=== PATIENT | female | born 1950 | race Caucasian/White ===

== ENCOUNTER 2023-03-04 11:27 | Emergency (ER) | payer MEDICARE, SELFPAY ==
[2023-03-04 11:38] VITALS: BP 129/49; PULSE 76; PULSE 86; RESP 18; TEMP 36.6; O2SAT 100; O2SAT 94; BMI 23.5
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
[2023-03-04 12:15] LABS: Appearance Urine Clear; Color Urine Dark Yellow; Glucose Urine UA Negative (Negative); Leukocyte Esterase Urine Trace (Negative); Nitrite Urine Negative (Negative); PH 7.5 (5.0-9.0); UMIC TRIGGER UACC YES; Urine Blood Negative (Negative); Urine Ketones 15 mg/dL (Negative); Urine Protein Negative (Neg-Trace)
[2023-03-04 12:17] LABS: Bacteria Urine None Seen (None Seen); Hyaline Casts Urine 0-2 /LPF (0-2); RBC Urine 0-2 /HPF (0-2); Squamous Epithelial Cell Urine 0-2 /HPF (0-2); WBC Urine 0-5 /HPF (0-5)
[2023-03-04 12:20] LABS: Amphetamine Screen Urine Not Detected (Not Detect); Barbiturates, Urine Not Detected (Not Detect); Benzodiazepines Screen Urine Not Detected (Not Detect); Cannabinoid Screen Urine Not Detected (Not Detect); Cocaine Screen Urine Not Detected (Not Detect); Fentanyl, urine Not Detected (Not Detect); Opiate Screen Urine Not Detected (Not Detect); Phencyclidine Screen Urine Not Detected (Not Detect)
--- NOTE | 2023-03-04 12:25 | PC.NURSE ---
pt partner, Ramírez Hale, also pts power of glazier supervisor and HCP - lives with pt.
--- OUTSIDE RECORDS SUMMARY | 2023-03-04 12:27 | XMS_ITS | Continuity of Care Document ---
Author Name Unknown Organization [facility] Address [address] [place] [id number]- Care Team Providers Care Electrical Systems Designer Name Role Phone Rashard Machuca DO Primary Care Physician [phone] Encounter [facility] [id number] Date(s): 12/17/22 - 12/24/22 [facility] [address] [place] [id number]- Attending Physician: Calixto Gonzalez MD Referring Physician: Rashard Machuca DO Allergies, Adverse Reactions, Alerts No Known Allergies Immunizations Given and Recorded Vaccine Date Status Refusal Reason pneumococcal 13-valent vaccine 08/25/15 Given Fluarix (oldterm) 01/29/13 Recorded Zostavax (oldterm) 09/03/12 Recorded tetanus/diphtheria/pertussis, acel(Tdap) 08/18/08 Recorded Medications Calcium Carbonate-Magnesium Carbonate 2 tablet, By Mouth, 3 times a day, 0 Refills, Maintenance, 05/04/15 11:03:14 Start Date: 05/04/15 Status: Ordered Culturelle Capsule 0 Refills, Maintenance, 08/19/14 12:16:21 Start Date: 08/19/14 Status: Ordered Destinee-C 1000 mg oral tablet 1 tablet = 1,000 mg, By Mouth, Daily, 0 Refills, Maintenance, 05/04/15 11:03:39 Start Date: 05/04/15 Status: Ordered Latanoprost 0.005% Ophth 1 drops, Eyes, Both, Daily at bedtime, 0 Refills, Maintenance, 08/19/14 12:16:07 Start Date: 08/19/14 Status: Ordered turmeric 0 Refills, Maintenance, 05/04/15 11:04:08 Start Date: 05/04/15 Status: Ordered Vitamin C Tablet 0 Refills, Maintenance, 08/19/14 12:18:22 Start Date: 08/19/14 Status: Ordered Vitamin D3 By Mouth, 0 Refills, Maintenance, 08/19/14 12:16:52 Start Date: 08/19/14 Status: Ordered Problem List Condition Confirmation Course Effective Dates Status Health St atus Informant Fatigue, started around 2006 Confirmed Active FH: Crohn's disease Confirmed Active HLA-B27 positive Confirmed Active Irritable bowel syndrome Confirmed Active Breast cancer, lumpectomy 2005, no chemo or radiation Confirmed Active Osteopenia Confirmed Active Vital Signs Most recent to oldest [Reference Range]: 1 Height 167 cm (12/17/22 1:01 PM) Weight 57.2 kg (12/17/22 1:01 PM) Social History Social History Type Response Smoking Status Never smoker entered on: 08/19/14 Sex Patient Care team information Care Team Personnel Name: Rashard Machuca DO Position: Reference Physician Member Role: PCP Address: Address: [address] [place] [address] [place] [address]- Care Team Related Persons Name: CALEB PADGETT
--- OUTSIDE RECORDS SUMMARY | 2023-03-04 12:27 | XMS_ITS | Continuity of Care Document ---
Author Name Unknown Organization [facility] Address [address] [place] [id number]- Care Team Providers Care Administration Assistant Name Role Phone Rashard Machuca DO Primary Care Physician Encounter [facility] Date(s): 12/17/22 - 01/16/[address] [address]- Attending Physician: Elin Garcia Admitting Physician: Elin Garcia Referring Physician: AdmtrElin Allergies, Adverse Reactions, Alerts No Known Allergies [...] 08/19/14 Status: Ordered turmeric 0 Refills, Maintenance, 01/06/16 11:04:08 Start Date: 05/04/15 Status: Ordered Vitamin [...] or radiation Confirmed Active Osteopenia Confirmed Active Social History Social History Type Response Smoking Status Never smoker entered on: 08/19/14 Sex Patient Care team information Care Team Personnel Name: Rashard Machuca DO Position: Reference Physician Member Role: PCP Address: Address: [address] [place] [id number]- Care Team Related Persons Name: CALEB PADGETT Name: CHESTER AMANDA Address: home [address] [place] [address]
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
[2023-03-04 14:13] VITALS: BP 141/51; PULSE 77; RESP 14; TEMP 36.9; O2SAT 99
[2023-03-04 14:17] LABS: MANUAL DIFF FLAG NO
[2023-03-04 14:18] LABS: Basophils Absolute Auto 0.1 X10*3/uL (0.0-0.2); Basophils Percent Auto 0.8 % (0-2); Eosinophils Absolute Auto 0.1 X10*3/uL (0.0-0.4); Eosinophils Percent Auto 1.1 % (0-4); Hematocrit 38.9 % (37.0-47.0); Hemoglobin 12.9 g/dl (12.0-16.0); Imm Gran Abs Auto 0.03 X10*3/uL (0.00-0.03); Imm Gran Pct Auto 0.4 % (0.0-0.4); Lymphocytes Absolute Auto 2.9 X10*3/uL (1.2-4.9); Lymphocytes Percent Auto 35.8 % (20-40); Mean Corpuscular HGB Conc 33.2 g/dl (31.0-35.0); Mean Corpuscular Hemoglobin 28.7 pg (27.0-33.0); Mean Corpuscular Volume 86.4 fL (80.0-98.0); Mean Platelet Volume 10.6 fL (9.4-12.3); Monocytes Absolute Auto 0.8 X10*3/uL (0.1-1.2); Monocytes Percent Auto 9.8 % (2-11); Neutrophils Absolute Auto 4.2 x10*3/uL (2.0-8.3); Neutrophils Percent Auto 52.1 % (45-73); Platelet Count 352 X10*3/uL (160-400); Red Cell Distribution Width 12.7 % (11.0-16.0)
[2023-03-04 14:34] LABS: Alanine Aminotransferase 12 U/L (0-31); Albumin Level 4.2 g/dL (3.5-5.0); Alkaline Phosphatase 52 U/L (39-117); Anion Gap 13 (12-20); Aspartate Amino Transferase 24 U/L (5-31); Bilirubin Direct 0.2 mg/dL (0.0-0.5); Bilirubin Total 0.4 mg/dL (0.0-1.0); Blood Urea Nitrogen 13 mg/dL (9-16); Carbon Dioxide 24 mmol/L (22-29); Chloride 106 mmol/L (96-108); Creatinine Clr Calc Pharmacy 70.6; Estimated Glomerular Filt Rate > 60; Glucose Random 98 mg/dL (60-115); Potassium 3.2 mmol/L (3.3-5.1); Sodium 140 mmol/L (135-145); Total Protein 7.3 g/dL (6.5-8.0)
--- NOTE | 2023-03-04 15:00 | MHC.CARE ---
Pt does not meet inpatient level of care currently, partner seeking LTC placement in SNF. CARE team requested OT complete MoCa and [place] Cognitive assessment on patient and OT reports they will do assessments tomorrow. CARE team also reached out to Ronit Nevarez CLEARANCE REP for med consult and ED provider requested medication consult formally to medicate place while boarding in ED.
--- NOTE | 2023-03-04 16:09 | MHC.CM.ED ---
Received case management consult from Blanca ROLON. Patient was brought to the ER under section 12. Patient was cleared by Care Team. Psych consult for med recommendation is pending. OT eval for MOCA and ACL are ordered and will be done tomorrow. Attempted to speak to patient's sig other/HCP, Ramírez via telephone at [phone]. Ramírez did not answer. Voicemail has not been set up. Received message from case management office that there is an active investigation with [facility]. Bhupendra is requesting a return telephone call. Attempted to speak to Bhupendra via telephone at [phone], ext [phone]. Left voicemail requesting return telephone call and that patient will be in the ER at least overnight. Continue to monitor for d/c needs.
--- NOTE | 2023-03-04 17:08 | ECG_ITS ---
Test Reason : AMS Blood Pressure : / mmHG Vent. Rate : 078 BPM Atrial Rate : 078 BPM P-R Int : 178 ms QRS Dur : 098 ms QT Int : 388 ms P-R-T Axes : 063 069 041 degrees QTc Int : 442 ms Normal sinus rhythm Normal ECG No previous ECGs available Referred By: Blanca Guillen Electronically Signed By:FERNANDA MCCARTNEY MD
[2023-03-04] MEDS: QUEtiapine Fumarate 25 MG TABLET PO (18:46)
--- NOTE | 2023-03-04 18:52 | PC.NURSE ---
pt resting bed folding blankets, she is increasingly agitated - medicated per MAR for seroquel 25mg. pt requesting to go home. requires frequent redirection and reassurance. pt cooperative at this time
[2023-03-04 20:09] VITALS: BP 124/74; PULSE 68; RESP 16; TEMP 36.6; O2SAT 94
--- NOTE | 2023-03-04 20:14 | PC.NURSE ---
This newspaper writer assumed care at 1900, Pt AO to self, pt is attempting to get out of bed, pt is very obsessed about her wooden bamboo cane. Pt states I need to go home. 1:[address] for safety.
--- NOTE | 2023-03-04 20:30 | PC.NURSE ---
This RN contacting the Care Team regarding clarification on disposition. This RN reading a Care Team note clearing patient from any psych component, noted a PT/CM eval in and a suggestion for LTC to manage dementia. I spoke to Mickie who also stated that she had been cleared by the Care Team and is now CM. Sitter removed from bedside, no longer needed. Plan for pt to be moved to OF.
--- NOTE | 2023-03-04 21:40 | PC.NURSE ---
Ramírez has been called to confirmed patients medications. has been updated and reassured of plan of care. Rn to Rn report given to overflow nurse.
--- NOTE | 2023-03-04 21:47 | PC.NURSE ---
This RN spoke to ОЛЬГА Robbins, asking for pts medications to be continued. Med Rec completed by ED RP.
[2023-03-04 21:50] VITALS: BP 137/61; PULSE 76; RESP 18; TEMP 36.6; O2SAT 96
--- NOTE | 2023-03-04 21:56 | MHC.EDTECH ---
Patient just came over from the main ed to overflow ,pt got settle in bed ,clean gown on ,RN took vitals ,fresh water given ,bed alarm on bed and Call anglin within Patient reach ,Tele sitter Camera in room ,Patient is calm ,warm blanket given .
--- NOTE | 2023-03-04 22:03 | PC.NURSE ---
Pt arrived to ED overflow from main ED at 21:42. VSS. Alert to self and generally to hospital. Hx dementia. Pt confused, requires frequent redirecting and reminder to remain in bed for safety. Camera placed for safety and VMT room notified 22:05. High falls risks measures in place. Pharmacy called to request scheduled meds not currently stocked in pyxis. Will continue to monitor.
[2023-03-04] MEDS: Latanoprost 0.005 % Ophth Sol 2.5 ML DROPS 1 DROP EYE-BOTH (22:19)
[2023-03-05 05:02] VITALS: BP 124/64; PULSE 94; RESP 14; TEMP 36.3; O2SAT 98
[2023-03-05] MEDS: QUEtiapine Fumarate 25 MG TABLET PO ×2 (05:03→17:17)
--- NOTE | 2023-03-05 06:11 | PC.NURSE ---
Pt remains confused, still requiring redirection, occassionally gets OOB without calling as evidenced by bed alarm. Constant observer covered from 23:00 to 03:00. In-room camera has remained in place since installed on assuming care. Pt given prn seroquel with +effect, pt appearing less agitated after administration. Will continue to monitor for remainder of administrative underwriter's shift.
--- NOTE | 2023-03-05 08:00 | MHC.EDTECH ---
Patient was unstable on her feet getting her out of bed this morning. She was brought to the bathroom and was clean for the day.
--- NOTE | 2023-03-05 08:23 | MHC.CM.ED ---
Addendum entered by Bushra De Jesus 03/05/23 12:18: CM MET WITH PTS S/O/HCP HE REPORTS HE WAS FEELING OVERWHELMED AND TIRED TRYING TO CARE FOR PT ALONE HE REPORTS HE WOULD PREFER PT BE ABLE TO RETURN HOME HOWEVER HE WOULD NEED ASSISTANCE HE IS AGREEABLE TO A REFERRAL TO EC HE IS AWARE THEY WOULD NOT SET UP SERVICES IMMEDIATELY IF SHE QUALIFIES REFERRAL SENT. CM CURRENTLY WAITING FOR EC TO SPEAK WITH S/O AND DETERMINE HOW SOON THEY COULD DO THE IN HOME ASSESSMENT S/O UNDERSTANDS SHE HAS TO BE HOME FOR THAT TO HAPPEN, HOWEVER HOPES THAT IT WILL BE SHORTLY AFTER SHE RETURNS Original Note: PSYCH EVAL/OT ASSESSMENTS PENDING LTC IN A LOCKED UNIT APPEARS TO BE THE DC GOAL REFERRAL BUILT, WILL BE SENT ONCE PSYCH DOCUMENTS ARE AVAILABLE
[2023-03-05 09:42] VITALS: BP 135/63; PULSE 84; RESP 15; TEMP 36.1; O2SAT 98
--- NOTE | 2023-03-05 10:11 | PHA.MEDREC ---
Pharmacy Consult ? Medication Reconciliation Pharmacy has completed the medication reconciliation. Reviewed med rec done by nursing
[2023-03-05] MEDS: DULoxetine HCl 30 MG CAPSULE.DR PO (10:16)
--- NOTE | 2023-03-05 12:44 | PM.PSYCN ---
History of Present Illness Date of Service: 03/05/2023 Chief Complaint: sec 12 by hpd, agitation, confused/disoriented Reason for Consult: combative behaviors in dementia Requesting physician: Blanca Guillen Discussed with referring provider: Yes Sources of Information: patient interviewed, chart reviewed and crisis/core team assessment reviewed HPI Narrative: Mrs. Weeks is a 72 year-old woman with hx of dementia who was brought via EMS due to increase combative behaviors towards significant other in setting of dementia. In the ED, pt had medical work up including cbc, cmp grossly unremarkable. She also had UA which had trace of leukocites, no nitrites. She was recently treated for UTI outpatient and just finished course of antipsychotic. Pt has been referred to case management for placement. Pt seen in ED. Pt is very pleasant on approach. She does know this is the hospital but does not know the month or day or date and she has some degree of insight that I forget things easily, it may not be accurate. She reports she is doing well. She hopes to go back home soon. She reports everyone here has been so nice, food is great. Pt earlier in the morning was somewhat agitated asking to leave. Per nursing, pt received seroquel 25mg po once with good effect. Diagnostics Vital Signs (24Hr): Vital Signs - 24 hr 03/04/23 14:13 03/04/23 20:09 03/04/23 21:50 Temperature 98.4 F 97.9 F 97.8 F Pulse Rate 77 68 76 Respiratory Rate 14 16 18 Blood Pressure 141/51 H 124/74 137/61 Pulse Oximetry 99 94 96 Oxygen Delivery Method Room Air Room Air Room Air 03/05/23 05:02 03/05/23 09:42 Temperature 97.3 F 97 F Pulse Rate 94 84 Respiratory Rate 14 15 Blood Pressure 124/64 135/63 Pulse Oximetry 98 98 Oxygen Delivery Method Room Air Room Air BMI result Body Mass Index 23.5 Labs 03/04/23 14:10 03/04/23 14:10 Labs: Laboratory Results - last 48 hr 03/04/23 03/04/23 12:06 14:10 WBC 8.0 RBC 4.50 Hgb 12.9 Hct 38.9 MCV 86.4 MCH 28.7 MCHC 33.2 RDW 12.7 Plt Count 352 MPV 10.6 Immature Gran % (Auto) 0.4 Neut % (Auto) 52.1 Lymph % (Auto) 35.8 Wilkin % (Auto) 9.8 Eos % (Auto) 1.1 Baso % (Auto) 0.8 Lymph # (Auto) 2.9 Wilkin # (Auto) 0.8 Eos # (Auto) 0.1 Baso # (Auto) 0.1 Abs Immat Gran (auto) 0.03 Absolute Neuts (auto) 4.2 Absolute Nucleated RBC 0.000 Nucleated RBC % (auto) 0.0 Sodium 140 Potassium 3.2 L Chloride 106 Carbon Dioxide 24 Anion Gap 13 BUN 13 Creatinine 0.68 Estim Creat Clear Calc 70.6 Estimated GFR > 60 Random Glucose 98 Calcium 10.0 Total Bilirubin 0.4 Direct Bilirubin 0.2 AST 24 ALT 12 Alkaline Phosphatase 52 Total Protein 7.3 Albumin 4.2 Urine Color Dark Yellow Urine Appearance Clear Urine pH 7.[address] 1.020 Urine Protein Negative Urine Glucose (UA) Negative Urine Ketones 15 Urine Blood Negative Urine Nitrite Negative Ur Leukocyte Esterase Trace H Urine RBC 0-2 Urine WBC 0-5 Ur Squamous Epith Cells 0-2 Urine Bacteria None Seen Hyaline Casts 0-2 Urine Opiates Screen Not Detected Urine Fentanyl Screen Not Detected Ur Barbiturates Screen Not Detected Ur Phencyclidine Scrn Not Detected Ur Amphetamines Screen Not Detected U Benzodiazepines Scrn Not Detected Urine Cocaine Screen Not Detected U Marijuana (THC) Screen Not Detected Mental Status Exam Mental Status Exam Narrative: Appearance:wearing hospital gown, fair hygiene, in NAD Behavior:very friendly and cooperative Psychomotor: no agitation or retardation noted Speech:clear, normal rate/rhythm/volume, spontaneous TP:mostly linear TC:feeling good, hoping to go home soon Mood: good Affect: bright SI:none HI: none VH/AH:none Delusions: none Insight/judgment: impaired x 2. memory/cog: alert, she does know this is the hospital, doesn't know the month, year, date or day nor she is oriented to situation. Medications Medications Current Medications Duloxetine HCl (Duloxetine Hcl 30 Mg Capsule.) 30 mg PO DAILY [facility] Last Admin: 03/05/23 10:16 Dose: 30 mg Latanoprost (Latanoprost 0.005 % Ophth Carol 2.5 Ml Drops) 1 drop EYE-BOTH BEDTIME [facility] Last Admin: 11/06/23 22:19 Dose: 1 drop Quetiapine Fumarate (Quetiapine Fumarate 25 Mg Tablet) 25 mg PO Q6H PRN PRN Reason: agitation Allergies Allergies Allergy/AdvReac Type Severity Reaction Status Date / Time No Known Allergies Allergy Verified 03/04/23 12:11 Assessment & Plan Assessment & Plan (1) Major neurocognitive disorder: Status: Acute Code(s): F03.90 - Unspecified dementia, unspecified severity, without behavioral disturbance, psychotic disturbance, mood disturbance, and anxiety Plan Ms. Weeks is a 72 year-old woman with hx of AD dementia, advanced at this point. She was brought via EMS due to increase combative behaviors. Pt not oriented to situation, month, year, date or day. Pt presents as pleasant but has had episodes of combative behaviors in setting of confusions. She had low dose seroquel this morning with good effect. This parts data writer called his significant other- Ramírez- updated him on presentation and discussed starting seroquel 25mg po TID- monitor sedation and adjust medications. Ramírez would like her to go back home with services. senior logistics manager working on it and plan for Mrs. Weeks to return home with significant other. PLAN 1. Start seroquel 25mg po TID- monitor over sedation- hold dose if over sedation is noted. 2. Pt to return back home with services coordinated by Case Management. 3. Pt does NOT have capacity to make medical decisions Total time managing care of this patient today ____ minutes.
--- NOTE | 2023-03-05 16:16 | MHC.OT.IE ---
[address] [phone] F: [phone] Occupational Therapy Inpatient Evaluation Patient Name: Kala Weeks History Diagnosis: dementia History of Current Condition: Medical History Reviewed: Precautions: Precautions Comments: Social History History Obtained By: Lives With: significant other Type of Dwelling: house Number of Floors: Number of Stairs to Enter: Living Situation Comment: Adaptive Equipment Owned: Adaptive Equipment Comment: Prior Level of Function: Pain Assessment Pain Score: Pain Scale Used: Pain Location and Description: Comment: Current Condition Behavior and Communication Alertness: pt is alert Orientation: pt is oriented to self only. She does know that she is in a hospital Safety Awareness: poor judgement Cognition Comments: Pt scored a 4.2 on the Darinel Cognitive Level Screen indicating moderate cognitive impairment. Pt can respond to visual and tactile cues and can differentiate cause and effect but cannot solve new problems, anticipate or correct mistakes. There is no independent new learning and she cannot invent new motor actions (can't do things that she's never done before). Attention span is up to one hour. Makes mistakes, can be repetitive and perseverative, low safety awareness, impulsive. Can follow a simple routine, perform ADLs but may need verbal cueing to do ADLs or do consistently and well. Pt was not able to perform the MOCA, partial MOCA included in pts file. Pt would be appropriate for a memory care unit at an Assisted Living Facility. Vision: WFL Hearing: WFL Coordination Finger to Nose: Finger Opposition: Rapid Alternating Movement: Comments: Sensory Assessment Light Touch: Localization: Proprioception: Temperature: Stereognosis: Comments: Musculoskeletal Upper Extremity ROM: Upper Extremity Strength: Balance Static Sitting: Dynamic Sitting: Static Standing: Dynamic Standing: Comments: Self-Care Feeding: Grooming: Upper Body Bathing: Lower Body Bathing: Upper Body Dressing: Lower Body Dressing: Toileting: IADL/Home Care: dependent Comments: Bed Mobility Assistive Device: Rolling: Supine to Sit: Sit to Supine: Comments: Transfers Assistive Device: Transfer Type: Transfer Destination: Transfer Ability: Comments: Functional Mobility Assistive Device: Ambulation Distance: Ambulation Ability: Comments: Plan of Care Rehab Potential: Assessment: Problem List: Treatment Plan: Goals: Goals Set with Patient: Frequency and Duration: Equipment Needed: Discharge Plan: Discharge Plan Comment: Discharge Today: Electronically Signed By: Kalyani Pichardo OTR/L Reviewed/agree with student documentation: Therapist:
--- NOTE | 2023-03-05 16:31 | PC.NURSE ---
[facility] care [id number]: Patient oriented to self. Mostly pleasantly confused and redirectable, but very impulsive and on occasion anxious/agitated with care though did not require PRN Seroquel. Tolerated regular diet well. Ambulated around the unit with 1:1. at the bedside throughout the morning and updated by this RN/CM. Care handed off to Mary BARCENAS.
[2023-03-05 17:17] VITALS: BP 135/75; PULSE 92; RESP 18; TEMP 36.3; O2SAT 98
[2023-03-05] MEDS: OLANZapine ODT 10 MG TAB.RAPDIS TRANSLINGU (20:05)
[2023-03-05] MEDS: traZODone HCL 50 MG TABLET PO (20:05)
[2023-03-05] MEDS: Latanoprost 0.005 % Ophth Sol 2.5 ML DROPS 1 DROP EYE-BOTH (20:12)
[2023-03-05 22:54] VITALS: RESP 15
[2023-03-06] MEDS: QUEtiapine Fumarate 25 MG TABLET PO ×5 (04:48→21:13)
[2023-03-06 06:17] VITALS: RESP 15
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
--- NOTE | 2023-03-06 06:26 | PC.NURSE ---
Majority of PT belongings in 4 green bags in nurses station
[2023-03-06] MEDS: DULoxetine HCl 30 MG CAPSULE.DR PO (08:13)
--- NOTE | 2023-03-06 12:36 | PC.NURSE ---
behavior non-concerning at this time, pt has been calm and cooperative this morning. Partner came to visit and brought books for patient. Pt ambulates with steady gait. Walked with patient to bathroom for safety.
[2023-03-06 14:09] VITALS: BP 116/54; PULSE 82; RESP 18; TEMP 36.8; O2SAT 100
--- NOTE | 2023-03-06 14:30 | MHC.CM.ED ---
Patient remains in ER overflow. [facility] has been asked to speak with patient's sig other/HCP, Ramírez. They will meet with him tomorrow. T/W attempted to speak with Ramírez via telephone at [phone] multiple times. No answer. Voicemail is not set up. Will continue to attempt to reach Ramírez. Per Pascale, music therapy teacher feels it would be better for patient to return home sooner. Continue to monitor for d/c needs.
--- NOTE | 2023-03-06 14:59 | MHC.EDTECH ---
assisted patient to and from the restroom x2.
--- NOTE | 2023-03-06 16:37 | PM.PSYCN ---
History of Present Illness Date of Service: 03/06/2023 Chief Complaint: sec 12 by hpd, agitation, confused/disoriented Reason for Consult: F/U Requesting physician: Suzy Simons Discussed with referring provider: Yes Sources of Information: patient interviewed, chart reviewed and crisis/core team assessment reviewed HPI Narrative: Interim Hx: pt sitting in bed. She is pleasant on approach. She reports she is not sure how long is here, but states she feels very lonely and hopes to go back home soon. She is not oriented to place or situation, month or date. She had seroquel this morning. No signs of over sedation. Pt tolerating medication without any problem. Case Management working on services at the home. Diagnostics Vital Signs (24Hr): Vital Signs - 24 hr 03/05/23 17:17 03/05/23 22:54 03/06/23 06:17 Temperature 97.3 F Pulse Rate 92 Respiratory Rate 18 15 15 Blood Pressure 135/75 Pulse Oximetry 98 Oxygen Delivery Method Room Air 03/06/23 14:09 Temperature 98.3 F Pulse Rate 82 Respiratory Rate 18 Blood Pressure 116/54 L Pulse Oximetry 100 Oxygen Delivery Method Room Air BMI result Body Mass Index 23.5 Labs 03/04/23 14:10 03/04/23 14:10 Mental Status Exam Mental Status Exam Narrative: Appearance:wearing hospital gown, fair hygiene, in NAD Behavior:very friendly and cooperative Psychomotor: no agitation or retardation noted Speech:clear, normal rate/rhythm/volume, spontaneous TP:mostly linear TC:feeling good, hoping to go home soon Mood: good Affect: bright SI:none HI: none VH/AH:none Delusions: none Insight/judgment: impaired x 2. memory/cog: alert, she does know this is the hospital, doesn't know the month, year, date or day nor she is oriented to situation. Medications Medications Current Medications Duloxetine HCl (Duloxetine Hcl 30 Mg Mary.) 30 mg PO DAILY [facility] Last Admin: 03/06/23 08:13 Dose: 30 mg Latanoprost (Latanoprost 0.005 % Ophth Carol 2.5 Ml Drops) 1 drop EYE-BOTH BEDTIME [facility] Last Admin: 03/05/23 20:12 Dose: 1 drop Quetiapine Fumarate (Quetiapine Fumarate 25 Mg Tablet) 25 mg PO Q6H PRN PRN Reason: agitation Last Admin: 03/06/23 04:48 Dose: 25 mg Quetiapine Fumarate (Quetiapine Fumarate 25 Mg Tablet) 25 mg PO TID [facility] Last Admin: 03/06/23 14:26 Dose: 25 mg Allergies Allergies Allergy/AdvReac Type Severity Reaction Status Date / Time No Known Allergies Allergy Verified 03/04/23 12:11 Assessment & Plan Assessment & Plan (1) Major neurocognitive disorder: Status: Acute Code(s): F03.90 - Unspecified dementia, unspecified severity, without behavioral disturbance, psychotic disturbance, mood disturbance, and anxiety Plan Ms. Weeks is a 72 year-old woman with hx of AD dementia, advanced at this point. She was brought via EMS due to increase combative behaviors. Pt not oriented to situation, month, year, date or day. Pt presents as pleasant but has had episodes of combative behaviors in setting of confusions. She had low dose seroquel this morning with good effect. This conventional underwriter called his significant other- Ramírez- updated him on presentation and discussed starting seroquel 25mg po TID- monitor sedation and adjust medications. Ramírez would like her to go back home with services. national account manager working on it and plan for Mrs. Weeks to return home with significant other. PLAN 1. Continue Seroquel 25mg TID- continue to monitor over sedation 2. Pt to return back home with services coordinated by Case Management. 3. Pt does NOT have capacity to make medical decisions Total time managing care of this patient today ____ minutes.
--- NOTE | 2023-03-06 18:14 | PC.NURSE ---
Assumed patient care at 1500. Patient needing redirecting throughout shift, per patient she needs to go home Patient packed her belongings. Patient cooperative and easily redirected. PRN seroquel given at 1808. Patient ambulating in room. Ate 25% of dinner. All needs met.
[2023-03-06 19:56] VITALS: BP 100/64; PULSE 79; RESP 17; TEMP 36.5; O2SAT 97
[2023-03-06] MEDS: Latanoprost 0.005 % Ophth Sol 2.5 ML DROPS 1 DROP EYE-BOTH (21:13)
--- NOTE | 2023-03-06 23:54 | PC.NURSE ---
This typewriters functional tester assumed care of this Pt at 1900. Pt A&O to self, calm and cooperative, sitting on edge of bed with blankets in bag, states I[place] at a [place] hotel, and I'm ready to leave . Pt redirected and reassured, states I've never done anything like this, I want to be with the people I love . Pt ambulated to sitting area and bathroom with steady gait. Water provided. Meds given per JUN. Pt updated on plan of care.
--- NOTE | 2023-03-07 04:36 | PC.NURSE ---
Pt appears to be sleeping, no apparent distress, equal nonlabored RR.
[2023-03-07 06:11] VITALS: BP 148/68; PULSE 91; RESP 16; TEMP 36.3; O2SAT 95
[2023-03-07] MEDS: DULoxetine HCl 30 MG CAPSULE.DR PO (09:00)
[2023-03-07] MEDS: QUEtiapine Fumarate 25 MG TABLET PO ×3 (09:00→20:45)
--- NOTE | 2023-03-07 13:47 | MHC.CM.ED ---
Patient remains in ER overflow. Felicia from [facility] met with Ramírez. [facility] will be able to assist with care on Saturday. T/W spoke with Ramírez via telephone at [phone]. Ramírez will transport patient home tomorrow 03/08 at 8am. Patient, Laureen BARCENAS and Eunice ROLON aware. Continue to monitor for d/c needs.
[2023-03-07 14:00] VITALS: BP 117/51; PULSE 86; RESP 18; TEMP 36.6; O2SAT 97
--- NOTE | 2023-03-07 19:18 | PC.NURSE ---
Addendum entered by Bassem Juárez RN 03/07/23 21:06: Security camera in place for safety. Original Note: Assumed care of pt. Pt up and ambulating on unit with steady gait, no acute distress. Pt pleasantly confused at this time, redirectable with plan of care for evaluation in am. Planning for administration of night time medications.
[2023-03-07 20:45] VITALS: BP 130/60; PULSE 83; RESP 19; TEMP 36.4; O2SAT 94
[2023-03-07] MEDS: Latanoprost 0.005 % Ophth Sol 2.5 ML DROPS 1 DROP EYE-BOTH (20:45)
[2023-03-08 06:22] VITALS: BP 135/69; PULSE 83; TEMP 36.2; O2SAT 96
[2023-03-08] MEDS: QUEtiapine Fumarate 25 MG TABLET PO (07:21)
[2023-03-08] MEDS: DULoxetine HCl 30 MG CAPSULE.DR PO (07:22)
== END 2023-03-08 08:30 | disposition home or self-care (01) ==
PROVIDERS: Physician Assistant Medical; Emergency Provider Emergency Medicine; PCP Family Medicine
DX: F03.911 Unspecified dementia, unspecified severity, with agitation (principal); F91.9 Conduct disorder, unspecified; R45.851 Suicidal ideations; R45.850 Homicidal ideations; Z79.899 Other long term (current) drug therapy
CPT/HCPCS: 36415; 80048; 80076; 80307; 81001; 85025; 93005; 99285; S9485

== ENCOUNTER → 2023-03-04 12:22 | Outpatient (BNV) | payer SELFPAY | PROVIDERS: Emergency Provider Emergency Medicine; PCP Family Medicine; Visit Provider Social Worker | DX: F03.90 Unspecified dementia, unspecified severity, without behavioral disturbance, psychotic disturbance, mood disturbance, and anxiety (principal) | CPT/HCPCS: 99285 ==

== ENCOUNTER 2023-05-13 11:37 | Emergency (ER) | payer MEDICARE, SELFPAY ==
[2023-05-13] VITALS (10 sets, daily range): BP systolic 120–147; BP diastolic 54–80; PULSE 79–110; RESP 16–20; TEMP 35.9–36.6; O2SAT 94–97; BMI 27.9
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
[2023-05-13 14:06] LABS: MANUAL DIFF FLAG NO
[2023-05-13 14:08] LABS: Basophils Absolute Auto 0.1 X10*3/uL (0.0-0.2); Basophils Percent Auto 0.8 % (0-2); Eosinophils Absolute Auto 0.2 X10*3/uL (0.0-0.4); Eosinophils Percent Auto 2.5 % (0-4); Hemoglobin 12.6 g/dl (12.0-16.0); Imm Gran Abs Auto 0.02 X10*3/uL (0.00-0.03); Imm Gran Pct Auto 0.3 % (0.0-0.4); Lymphocytes Absolute Auto 2.1 X10*3/uL (1.2-4.9); Lymphocytes Percent Auto 26.8 % (20-40); Mean Corpuscular HGB Conc 32.3 g/dl (31.0-35.0); Mean Corpuscular Hemoglobin 28.4 pg (27.0-33.0); Mean Corpuscular Volume 87.8 fL (80.0-98.0); Mean Platelet Volume 10.2 fL (9.4-12.3); Monocytes Absolute Auto 0.6 X10*3/uL (0.1-1.2); Monocytes Percent Auto 8.2 % (2-11); Neutrophils Absolute Auto 4.7 x10*3/uL (2.0-8.3); Neutrophils Percent Auto 61.4 % (45-73); Platelet Count 265 X10*3/uL (160-400); Red Blood Count 4.44 X10*6/uL (4.20-5.50); Red Cell Distribution Width 13.4 % (11.0-16.0); White Blood Count 7.7 X10*3/uL (4.8-10.8)
[2023-05-13 14:19] LABS: Ethanol < 10 mg/dL
[2023-05-13 14:21] LABS: Alanine Aminotransferase 16 U/L (0-31); Albumin Level 4.1 g/dL (3.5-5.0); Alkaline Phosphatase 58 U/L (39-117); Anion Gap 12 (12-20); Aspartate Amino Transferase 25 U/L (5-31); Bilirubin Total 0.3 mg/dL (0.0-1.0); Blood Urea Nitrogen 18 mg/dL (9-16); Calcium 10.3 mg/dL (8.4-10.2); Carbon Dioxide 29 mmol/L (22-29); Chloride 103 mmol/L (96-108); Creatinine Clr Calc Pharmacy 71.9; Estimated Glomerular Filt Rate > 60; Glucose Random 153 mg/dL (60-115); Potassium 4.5 mmol/L (3.3-5.1); Sodium 139 mmol/L (135-145); Total Protein 7.4 g/dL (6.5-8.0)
[2023-05-13] MEDS: LORazepam 1 MG TABLET 2 MG PO (17:08)
[2023-05-13] MEDS: HaloperidoL 5 MG TABLET PO (17:09)
[2023-05-13] MEDS: Ziprasidone Mesylate 20 MG VIAL IM (22:45)
[2023-05-14 06:35] VITALS: BP 144/64; PULSE 78; RESP 16; TEMP 36.7; O2SAT 96
--- NOTE | 2023-05-14 08:07 | MHC.EDTECH ---
Pt requesting to use the bathroom. I helped patient up, but she states she cant make it to the bathroom. I did bring a commode. After patient finished on the commode I helped her stand, she was very unsteady, she soiled her underpants, and gown. Patient was cleaned up and helped back into bed. Urine sample sent down. Nurse aware. Doug Martinez SG
[2023-05-14 08:10] LABS: Appearance Urine Clear; Color Urine Yellow; Glucose Urine UA Negative (Negative); Leukocyte Esterase Urine Negative (Negative); Nitrite Urine Negative (Negative); PH 6.5 (5.0-9.0); Urine Blood Negative (Negative); Urine Ketones Negative (Negative); Urine Protein Negative (Neg-Trace)
[2023-05-14 08:19] LABS: Amphetamine Screen Urine Not Detected (Not Detect); Barbiturates, Urine Not Detected (Not Detect); Benzodiazepines Screen Urine Not Detected (Not Detect); Cannabinoid Screen Urine Not Detected (Not Detect); Cocaine Screen Urine Not Detected (Not Detect); Fentanyl, urine Not Detected (Not Detect); Opiate Screen Urine Not Detected (Not Detect); Phencyclidine Screen Urine Not Detected (Not Detect)
[2023-05-14 09:07] VITALS: BP 138/48; PULSE 87; RESP 17; O2SAT 98
[2023-05-14 10:31] VITALS: BP 149/97; PULSE 78; RESP 18; TEMP 36.6; O2SAT 94
--- NOTE | 2023-05-14 10:56 | PHA.MEDREC ---
Pharmacy Consult ? Medication Reconciliation Pharmacy has completed the medication reconciliation. Spoke to patient's spouse Ramírez ([phone]) in person to confirm pt meds. He also brought in patients med. Pt takes Cymbalta [address] BID.
[2023-05-14] MEDS: Haloperidol Lactate 5 MG/ML VIAL IM (11:26)
[2023-05-14 11:31] VITALS: BP 151/67; PULSE 87; RESP 18; TEMP 36.7; O2SAT 97
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
[2023-05-14] MEDS: Gabapentin 100 MG CAPSULE PO ×2 (11:58→20:47)
[2023-05-14] MEDS: QUEtiapine Fumarate 50 MG TABLET PO ×2 (11:59→20:47)
[2023-05-14 12:17] VITALS: BP 150/63; PULSE 86; RESP 16; O2SAT 98
--- NOTE | 2023-05-14 15:31 | MHC.CM.ED ---
Received case management consult. Patient came to the ER due to behaviors related to dementia. Patient cleared by the Care Team. Received notification from Maryjo at [facility]. They were in the process of arranging for the patient to admit to their facility next week. Due to increased behaviors at home they would be able to admit the patient to their facility tomorrow 05/15. They asked all home meds (OTC and prescription) either be printed for patient or sent to [facility] in [place]. Krista ROLON has been asked to assist with this. Continue to monitor for d/c needs.
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
--- NOTE | 2023-05-14 16:31 | P.CNPS_ITS ---
History of Present Illness Date of Service: 05/14/2023 Chief Complaint: SEC 12,? MED ISSUES PER FAMILY PER EMS Reason for Consult: agitation Discussed with referring provider: Yes Sources of Information: patient interviewed, chart reviewed and crisis/core team assessment reviewed HPI Narrative: Mrs. Weeks is a 72 year-old woman with advanced dementia. She was brought by partner Ramírez due to pt presenting with increased agitation and combative behaviors. Pt is known to this selling underwriter through previous ED assessment with similar presentation. CBC and CMP unremarkable. UA without leukocytes, or nitrites. Pt seen in the ED. She presents as calm. She is not oriented to place, month, year or situation, which it is her baseline. She mostly confabulates, reports she has been here doing computer work. She has been taking medications as prescribed. When asked about partner Ramírez, she reports I haven't seen him in a long time. Diagnostics Vital Signs (24Hr): Vital Signs - 24 hr 05/13/23 19:45 05/13/23 22:40 05/13/23 22:43 Temperature 96.6 F L Pulse Rate 87 79 79 Respiratory Rate 18 20 16 Blood Pressure 120/54 L 129/54 L 129/54 L Pulse Oximetry 95 96 96 Oxygen Delivery Method Room Air Room Air Room Air 05/13/23 22:55 05/13/23 23:10 05/13/23 23:25 Temperature Pulse Rate 85 89 80 Respiratory Rate 18 18 16 Blood Pressure 137/60 129/59 L 138/63 Pulse Oximetry 94 94 94 Oxygen Delivery Method Room Air Room Air Room Air 05/13/23 23:40 05/13/23 23:55 05/14/23 06:35 Temperature 98.0 F Pulse Rate 84 84 78 Respiratory Rate 16 16 16 Blood Pressure 147/62 H 141/73 H 144/64 H Pulse Oximetry 94 95 96 Oxygen Delivery Method Room Air Room Air Room Air 05/14/23 09:07 05/14/23 10:31 05/14/23 11:31 Temperature 98 F 98.0 F Pulse Rate 87 78 87 Respiratory Rate 17 18 18 Blood Pressure 138/48 L 149/97 H 151/67 H Pulse Oximetry 98 94 97 Oxygen Delivery Method Room Air Room Air 05/14/23 12:17 Temperature Pulse Rate 86 Respiratory Rate 16 Blood Pressure 150/63 H Pulse Oximetry 98 Oxygen Delivery Method BMI result Body Mass Index 27.9 Labs 05/13/23 14:02 05/13/23 14:02 Labs: Laboratory Results - last 48 hr 05/13/23 05/14/23 14:02 08:03 WBC 7.7 RBC 4.44 Hgb 12.6 Hct 39.0 MCV 87.8 MCH 28.4 MCHC 32.3 RDW 13.4 Plt Count 265 MPV 10.2 Immature Gran % (Auto) 0.3 Neut % (Auto) 61.4 Lymph % (Auto) 26.8 [place] % (Auto) 8.2 Eos % (Auto) 2.5 Baso % (Auto) 0.8 Lymph # (Auto) 2.1 [place] # (Auto) 0.6 Eos # (Auto) 0.2 Baso # (Auto) 0.1 Abs Immat Gran (auto) 0.02 Absolute Neuts (auto) 4.7 Absolute Nucleated RBC 0.000 Nucleated RBC % (auto) 0.0 Sodium 139 Potassium 4.5 Chloride 103 Carbon Dioxide 29 Anion Gap 12 BUN 18 H Creatinine 0.75 Estim Creat Clear Calc 71.9 Estimated GFR > 60 Random Glucose 153 H Calcium 10.3 H Total Bilirubin 0.3 AST 25 ALT 16 Alkaline Phosphatase 58 Total Protein 7.4 Albumin 4.1 Urine Color Yellow Urine Appearance Clear Urine pH 6.5 Ur Specific [place] 1.010 Urine Protein Negative Urine Glucose (UA) Negative Urine Ketones Negative Urine Blood Negative Urine Nitrite Negative Ur Leukocyte Esterase Negative Urine Opiates Screen Not Detected Urine Fentanyl Screen Not Detected Ur Barbiturates Screen Not Detected Ur Phencyclidine Scrn Not Detected Ur Amphetamines Screen Not Detected U Benzodiazepines Scrn Not Detected Urine Cocaine Screen Not Detected U Marijuana (THC) Screen Not Detected Ethyl Alcohol < 10 Mental Status Exam Mental Status Exam Narrative: Appearance:wearing hospital gown, fair hygiene, in NAD Behavior:cooperative Psychomotor: no agitation or retardation noted Speech:clear, normal rate/rhythm/volume, spontaneous TP:mostly linear TC:resting Mood: good Affect: bright, non labile SI:none HI: none VH/AH:none Delusions: none Insight/judgment: impaired x 2. memory/cog: alert, she does know this is the hospital, doesn't know the month, year, date or day nor she is oriented to situation. Medications Medications Current Medications Duloxetine HCl (Duloxetine Hcl 20 Mg Capsule.Dr) 20 mg PO BID DAVID Gabapentin (Gabapentin 100 Mg Capsule) 100 mg PO TID [facility] Last Admin: 05/14/23 15:18 Dose: Not Given Latanoprost (Latanoprost 0.005 % Ophth [place] 2.5 Ml Drops) 1 drop EYE-BOTH BEDTIME DAVID Melatonin (Melatonin 3 Mg Tablet) 2.5 mg PO BEDTIME DAVID Quetiapine Fumarate (Quetiapine Fumarate 50 Mg Tablet) 50 mg PO TID [facility] Last Admin: 05/14/23 15:18 Dose: Not Given Sodium Chloride (Sodium Chloride 0.65 % Nasal 44 Ml Sprbtl) 1 spray NOSTRIL-B BID PRN PRN Reason: Congestion Allergies Allergies Allergy/AdvReac Type Severity Reaction Status Date / Time No Known Allergies Allergy Verified 03/04/23 12:11 Assessment & Plan Assessment & Plan (1) Major neurocognitive disorder: Status: Acute Code(s): F03.90 - Unspecified dementia, unspecified severity, without behavioral disturbance, psychotic disturbance, mood disturbance, and anxiety Plan Ms. Weeks is a 72 year-old woman with hx of AD dementia. She was brought to increase combative behaviors towards partner. Medical work up cbc and cmp is unremarkable, no signs of infection or electrolytes imbalances. UA is negative for infection. Pt not oriented to place, situation, month or year which is baseline for her. No s/s of VH/AH or overt delusional content but confabulations noted. Currently calm. She is on seroquel 50mg po TID- unclear if recently increase in the community but will continue current dose. PLAN 1. Continue Seroquel 50mg TID- continue to monitor over sedation 2. No need for inpatient level of care. It appears LTP is plan.Case management working with family. Total time managing care of this patient today ____ minutes.
--- NOTE | 2023-05-14 16:43 | PC.NURSE ---
Assumed care of this patient at 1500.
--- NOTE | 2023-05-14 18:14 | MHC.CARE ---
Pt seen and cleared by CARE team, referred to case management for LTC placement.
[2023-05-14 19:22] VITALS: BP 154/65; PULSE 88; RESP 16; TEMP 37.1; O2SAT 98
[2023-05-14] MEDS: Melatonin 3 MG TABLET 2.5 MG PO (20:46)
[2023-05-14] MEDS: DULoxetine HCl 20 MG CAPSULE.DR PO (20:47)
[2023-05-14] MEDS: Latanoprost 0.005 % Ophth Sol 2.5 ML DROPS 1 DROP EYE-BOTH (20:47)
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
[2023-05-15 00:09] VITALS: BP 125/61; PULSE 79; RESP 16; TEMP 36.8; O2SAT 96
--- NOTE | 2023-05-15 00:10 | MHC.EDTECH ---
This tech took over care of patient at 2300,hourly rounds and vitals completed.Patient is resting comfortably 1-1 sitter at bedside for safety
--- NOTE | 2023-05-15 02:20 | MHC.EDTECH ---
Hourly rounds completed,patient is sleeping resp. rate WNL. 1-1 sitter at bedside for safety
[2023-05-15 05:28] VITALS: BP 139/73; PULSE 96; RESP 16; TEMP 36.5; O2SAT 95
--- NOTE | 2023-05-15 06:20 | PC.NURSE ---
Pt alert and oriented to self. This RN walked wt PT around the ED . Pt gait steady. Pt denies SI/HI/AH/VH at this time. 1:1 sitter at bedside. Safety precautions in place. plan of care ongoing
[2023-05-15 08:30] VITALS: BP 138/62; PULSE 95; RESP 16; TEMP 36.8; O2SAT 93
[2023-05-15] MEDS: DULoxetine HCl 20 MG CAPSULE.DR PO (08:32)
[2023-05-15] MEDS: Gabapentin 100 MG CAPSULE PO (08:32)
[2023-05-15] MEDS: QUEtiapine Fumarate 50 MG TABLET PO (08:32)
--- NOTE | 2023-05-15 08:53 | PC.NURSE ---
resting quietly in room, patient observer at bedside for patient safety. offering no complaints at this time, call anglin within reach. medicated per the JUN.
--- NOTE | 2023-05-15 10:25 | MHC.CM.ED ---
Addendum entered by Etelvina Vences 05/15/23 10:43: Received return telephone call from Miguel. Miguel aware and agreeable to d/c plan. Addendum entered by Etelvina Vences 05/15/23 10:40: Attempted to notify Miguel of d/c via telephone at [phone]. No answer. Unable to leave a message. Original Note: Patient remains in ER. Received notification from Maryjo at [facility] that all the necessary paperwork has been completed. Patient's furniture will be delivered at 12pm. Patient can leave at 1pm. Zaid GOOD booked. Med [facility] with chart. Patient, Tamera BARCENAS and Araceli ROLON aware. Continue to monitor for d/c needs.
--- NOTE | 2023-05-15 13:33 | PC.NURSE ---
report given to [facility]
== END 2023-05-15 14:07 ==
PROVIDERS: Physician Assistant; Emergency Provider Emergency Medicine
DX: F03.90 Unspecified dementia, unspecified severity, without behavioral disturbance, psychotic disturbance, mood disturbance, and anxiety (principal); F02.811 Dementia in other diseases classified elsewhere, unspecified severity, with agitation; Z79.899 Other long term (current) drug therapy
CPT/HCPCS: 36415; 80053; 80307; 81003; 85025; 96372; 99285; J1630; J3486; S9485

== ENCOUNTER → 2023-05-13 13:35 | Outpatient (BNV) | payer MEDICARE, SELFPAY | PROVIDERS: Emergency Provider Emergency Medicine; Visit Provider Social Worker | DX: F03.90 Unspecified dementia, unspecified severity, without behavioral disturbance, psychotic disturbance, mood disturbance, and anxiety (principal) | CPT/HCPCS: 99285 ==

== ENCOUNTER 2023-06-24 17:48 | Emergency (ER) | payer MEDICARE, SELFPAY ==
[2023-06-24 18:24] VITALS: BP 115/65; BP 123/56; PULSE 72; PULSE 81; RESP 16; TEMP 36.8; O2SAT 94; O2SAT 97; BMI 27.6
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
[2023-06-24 20:00] VITALS: BP 130/64; PULSE 72; RESP 16; TEMP 36.2; O2SAT 97
[2023-06-24 20:11] LABS: Appearance Urine Clear; Color Urine Yellow; Glucose Urine UA Negative (Negative); Leukocyte Esterase Urine Trace (Negative); Nitrite Urine Negative (Negative); PH 6.5 (5.0-9.0); Specific Gravity - Urine 1.025 (1.005-1.025); UMIC TRIGGER UACC YES; Urine Blood Negative (Negative); Urine Ketones Negative (Negative); Urine Protein Negative (Neg-Trace)
[2023-06-24 20:15] LABS: Bacteria Urine None Seen (None Seen); Hyaline Casts Urine 0-2 /LPF (0-2); RBC Urine 0-2 /HPF (0-2); Squamous Epithelial Cell Urine 0-2 /HPF (0-2); WBC Urine 0-5 /HPF (0-5)
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
[2023-06-24 22:55] VITALS: BP 116/54; PULSE 64; RESP 16; TEMP 36.7; O2SAT 96
--- NOTE | 2023-06-25 05:01 | PC.NURSE ---
belongings given to becky to drop off at the [facility] at [address]
== END 2023-06-24 23:15 | disposition home or self-care (01) ==
PROVIDERS: Physician Assistant; Emergency Provider Emergency Medicine; PCP Internal Medicine
DX: G30.9 Alzheimer's disease, unspecified (principal); F02.811 Dementia in other diseases classified elsewhere, unspecified severity, with agitation
CPT/HCPCS: 81001; 99283; 99284

== ENCOUNTER 2023-08-11 14:25 | Emergency (ER) | payer MEDICARE, SELFPAY ==
--- NOTE | ~2023-08-11 | XR_ITS ---
EXAMINATION: XR CHEST CLINICAL INFORMATION: Rule out infection. COMPARISON: None available. TECHNIQUE: 2 views of the chest were obtained. FINDINGS: The trachea is in normal anatomic position. The cardiac silhouette is normal in size. There is no consolidation within either lung. No large pleural effusion. Trace blunting of the left costophrenic angle may reflect pleural thickening. No pneumothorax. There are mild degenerative changes of the spine. No acute osseous abnormality. XR/XR chest 2V IMPRESSION: Trace blunting of the left costophrenic angle may represent pleural thickening, however, a tiny pleural effusion cannot be excluded. No consolidation within either lung.
[2023-08-11 14:47] VITALS: BP 115/45; PULSE 84; RESP 16; TEMP 36.5; O2SAT 96; BMI 31.3
--- NOTE | 2023-08-11 15:17 | PC.NURSE ---
patient provided with warm blanket. at this time, patient is calm and cooperative.
--- NOTE | 2023-08-11 15:46 | ED_ITS ---
HPI - General Adult General Chief complaint: Behavioral Concerns Stated complaint: BEHAVIORAL Time Seen by Provider: 08/11/23 15:45 Source: patient Mode of arrival: ambulatory Limitations: no limitations Related Data Home Medications ?Medication ?Instructions ?Recorded ?Confirmed latanoprost 0.005 % eye drops 1 drp ophthalmic (eye) BEDTIME 03/04/23 05/14/23 duloxetine 20 mg capsule,delayed 20 mg PO BID 05/14/23 05/14/23 release gabapentin 100 mg capsule 100 mg PO TID 05/14/23 05/14/23 melatonin 2.5 mg chewable tablet 2.5 mg PO BEDTIME 05/14/23 05/14/23 quetiapine 25 mg tablet 50 mg PO TID 05/14/23 05/14/23 sodium chloride 0.65 % nasal spray 1 spray intranasal BID PRN 05/14/23 05/14/23 aerosol (Saline Nasal) Congestion Previous Rx's ?Medication ?Instructions ?Recorded duloxetine 20 mg capsule,delayed 20 mg PO BID #60 caps 05/14/23 release gabapentin 100 mg capsule 100 mg PO TID #90 caps 05/14/23 latanoprost 0.005 % eye drops 1 drp ophthalmic (eye) BEDTIME 05/14/23 #2.5 mL melatonin 3 mg tablet 2.5 mg (0.8333 x 3 mg) PO BEDTIME 05/14/23 #30 tabs quetiapine 50 mg tablet 50 mg PO TID #90 tabs 05/14/23 sodium chloride 0.65 % nasal spray 1 spray intranasal BID PRN 05/14/23 aerosol (Deep Sea Nasal) Congestion #44 mL Allergies Allergy/AdvReac Type Severity Reaction Status Date / Time No Known Allergies Allergy Verified 08/11/23 14:48 Review of Systems Review of Systems: Yes all other systems are reviewed and are negative PMFSH Past Medical History Attestation statement: The following information was validated with the patient. Source: old records reviewed and nursing notes reviewed Social History Social History Alcohol intake: current Alcohol intake frequency: holidays/special occasions only Alcohol type: wine Advance Directives: Yes Advance Directives on File: Yes Advance Directives Date on File: 06/24/23 Physical Exam ED Vital Signs: Vital Signs - 24 hr 08/11/23 14:47 Temperature 97.7 F Pulse Rate 84 Respiratory Rate 16 Blood Pressure 115/45 L Pulse Oximetry 96 Oxygen Delivery Method Room Air BMI result Body Mass Index 31.3 vss Appearance: Alert.? Oriented X3.? No acute distress.? Head: Normocephalic, atraumatic, no step-offs or deformities Eyes: Pupils equal, round and reactive to light.? CVS: Normal heart rate and rhythm.? Pulses normal.? Respiratory: No respiratory distress.? Breath sounds normal.? Abdomen: Soft and nontender.? Skin: Skin warm and dry.? Normal skin color.? Normal skin turgor.? Extremities: No lower extremity edema.? No calf ttp. 5/5 strength to bilateral upper and lower extremities Back: No midline tenderness, no C-spine tenderness, full range of motion, no CVA tenderness bilaterally Neuro: Oriented X 3.? No motor deficit.? No sensory deficit. CN 2-12 intact Discharge Plan Discharge Prescriptions: No Action quetiapine 25 mg tablet 50 mg PO TID gabapentin 100 mg capsule 100 mg PO TID Saline Nasal 0.65 % Aerosol,[place] 1 spray INTRANASAL BID PRN (Reason: Congestion) duloxetine 20 mg capsule,delayed release(DR/EC) 20 mg PO BID melatonin 2.5 mg Tablet,Chewable 2.5 mg PO BEDTIME latanoprost 0.005 % Drops 1 drp ophthalmic (eye) BEDTIME Qty: 2.5 0RF melatonin 3 mg Tablet 2.5 mg PO BEDTIME Qty: 30 0RF gabapentin 100 mg Capsule 100 mg PO TID Qty: 90 0RF Deep Sea Nasal 0.65 % Aerosol,[place] 1 spray intranasal BID PRN (Reason: Congestion) Qty: 44 0RF duloxetine 20 mg Capsule,Delayed Release(Dr/Ec) 20 mg PO BID Qty: 60 0RF quetiapine 50 mg Tablet 50 mg PO TID Qty: 90 0RF latanoprost 0.005 % drops 1 drp ophthalmic (eye) BEDTIME Print Language: Turkmen
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
[2023-08-11 16:11] VITALS: BP 135/81; PULSE 86; RESP 16; TEMP 36.6; O2SAT 97
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
[2023-08-11 16:37] LABS: MANUAL DIFF FLAG NO
[2023-08-11 16:40] LABS: Basophils Absolute Auto 0.1 X10*3/uL (0.0-0.2); Basophils Percent Auto 0.8 % (0-2); Eosinophils Absolute Auto 0.2 X10*3/uL (0.0-0.4); Eosinophils Percent Auto 2.8 % (0-4); Hematocrit 38.8 % (37.0-47.0); Hemoglobin 12.6 g/dl (12.0-16.0); Imm Gran Abs Auto 0.11 X10*3/uL (0.00-0.03); Imm Gran Pct Auto 1.4 % (0.0-0.4); Lymphocytes Absolute Auto 2.9 X10*3/uL (1.2-4.9); Lymphocytes Percent Auto 36.4 % (20-40); Mean Corpuscular HGB Conc 32.5 g/dl (31.0-35.0); Mean Corpuscular Hemoglobin 28.3 pg (27.0-33.0); Mean Platelet Volume 9.7 fL (9.4-12.3); Monocytes Absolute Auto 0.9 X10*3/uL (0.1-1.2); Monocytes Percent Auto 11.7 % (2-11); Neutrophils Absolute Auto 3.7 x10*3/uL (2.0-8.3); Neutrophils Percent Auto 46.9 % (45-73); Platelet Count 322 X10*3/uL (160-400); Red Blood Count 4.46 X10*6/uL (4.20-5.50); Red Cell Distribution Width 13.4 % (11.0-16.0); White Blood Count 7.9 X10*3/uL (4.8-10.8)
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
[2023-08-11 17:01] LABS: Alanine Aminotransferase 10 U/L (0-31); Albumin Level 3.9 g/dL (3.5-5.0); Alkaline Phosphatase 71 U/L (39-117); Anion Gap 13 (12-20); Aspartate Amino Transferase 20 U/L (5-31); Bilirubin Total 0.2 mg/dL (0.0-1.0); Blood Urea Nitrogen 13 mg/dL (9-16); Calcium 9.4 mg/dL (8.4-10.2); Carbon Dioxide 27 mmol/L (22-29); Chloride 104 mmol/L (96-108); Creatinine Clr Calc Pharmacy 93.5; Estimated Glomerular Filt Rate > 60; Glucose Random 94 mg/dL (60-115); Potassium 3.9 mmol/L (3.3-5.1); Sodium 140 mmol/L (135-145); Total Protein 7.5 g/dL (6.5-8.0)
[2023-08-11 17:04] LABS: Salicylate < 5.0 mg/dL (15-30)
[2023-08-11 17:05] LABS: Ethanol < 10 mg/dL
[2023-08-11 17:08] LABS: IDNOW Serial# 152EDE1D
[2023-08-11 17:09] LABS: COVID-19 Test Negative (Negative)
[2023-08-11 17:34] LABS: Amphetamine Screen Urine Not Detected (Not Detect); Appearance Urine Clear; Barbiturates, Urine Not Detected (Not Detect); Benzodiazepines Screen Urine Not Detected (Not Detect); Cannabinoid Screen Urine Not Detected (Not Detect); Cocaine Screen Urine Not Detected (Not Detect); Color Urine Yellow; Fentanyl, urine Not Detected (Not Detect); Glucose Urine UA Negative (Negative); Leukocyte Esterase Urine Small (1+) (Negative); Nitrite Urine Negative (Negative); Opiate Screen Urine Not Detected (Not Detect); Phencyclidine Screen Urine Not Detected (Not Detect); Specific Gravity - Urine <= 1.005 (1.005-1.025); UMIC TRIGGER UACC YES; Urine Blood Negative (Negative); Urine Ketones Negative (Negative); Urine Protein Negative (Neg-Trace)
[2023-08-11 17:39] LABS: Bacteria Urine None Seen (None Seen); Hyaline Casts Urine 0-2 /LPF (0-2); RBC Urine 0-2 /HPF (0-2); Squamous Epithelial Cell Urine 0-2 /HPF (0-2); UACC Culture Trigger YES
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
[2023-08-11 19:56] VITALS: BP 135/83; PULSE 65; RESP 16; TEMP 37; O2SAT 97
== END 2023-08-11 19:57 ==
PROVIDERS: Student in an Organized Health Care Education/Training Program; Emergency Provider Emergency Medicine; PCP Pediatrics
DX: F03.90 Unspecified dementia, unspecified severity, without behavioral disturbance, psychotic disturbance, mood disturbance, and anxiety (principal); Z11.52 Encounter for screening for COVID-19
CPT/HCPCS: 36415; 71046; 80053; 80179; 80307; 81001; 85025; 87086; 87635; 99283

== ENCOUNTER 2023-12-19 17:15 | Emergency (ER) | payer MEDICARE, SELFPAY ==
--- NOTE | ~2023-12-19 | XR_ITS ---
EXAMINATION: XR chest 2V CLINICAL INFORMATION: Pain in the chest COMPARISON: 08/11/2023 TECHNIQUE: 2 views of the chest FINDINGS/ XR/XR chest 2V IMPRESSION: Clear lungs. No pneumothorax. No pleural effusion. Unchanged cardiomediastinal silhouette. Electronically signed by: Savanah Bautista MD 12/19/2023 07:03 PM EDT
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
[2023-12-19 17:20] VITALS: BP 139/60; PULSE 85; RESP 18; TEMP 36.6; O2SAT 95
[2023-12-19 17:23] VITALS: BP 139/60; BP 141/65; PULSE 85; PULSE 92; RESP 18; TEMP 36.6; O2SAT 96; O2SAT 98; BMI 31.0
[2023-12-19 18:18] LABS: MANUAL DIFF FLAG NO
[2023-12-19 18:36] LABS: COVID-19 Test Negative (Negative); IDNOW Serial# 08D9AD1C
[2023-12-19 18:38] LABS: Basophils Absolute Auto 0.1 X10*3/uL (0.0-0.2); Basophils Percent Auto 0.9 % (0-2); Eosinophils Percent Auto 0.2 % (0-4); Hematocrit 37.8 % (37.0-47.0); Hemoglobin 12.3 g/dl (12.0-16.0); Imm Gran Abs Auto 0.04 X10*3/uL (0.00-0.03); Imm Gran Pct Auto 0.6 % (0.0-0.4); Lymphocytes Absolute Auto 2.6 X10*3/uL (1.2-4.9); Mean Corpuscular HGB Conc 32.5 g/dl (31.0-35.0); Mean Corpuscular Hemoglobin 29.4 pg (27.0-33.0); Mean Corpuscular Volume 90.4 fL (80.0-98.0); Mean Platelet Volume 10.3 fL (9.4-12.3); Monocytes Absolute Auto 0.7 X10*3/uL (0.1-1.2); Monocytes Percent Auto 11.2 % (2-11); Neutrophils Absolute Auto 3.2 x10*3/uL (2.0-8.3); Neutrophils Percent Auto 48.1 % (45-73); Platelet Count 324 X10*3/uL (160-400); Red Blood Count 4.18 X10*6/uL (4.20-5.50); Red Cell Distribution Width 13.3 % (11.0-16.0); White Blood Count 6.6 X10*3/uL (4.8-10.8)
[2023-12-19 18:43] LABS: Alanine Aminotransferase 15 U/L (0-31); Albumin Level 4.2 g/dL (3.5-5.0); Alkaline Phosphatase 85 U/L (39-117); Anion Gap 12 (12-20); Aspartate Amino Transferase 23 U/L (5-31); Bilirubin Total 0.2 mg/dL (0.0-1.0); Blood Urea Nitrogen 20 mg/dL (9-16); Carbon Dioxide 30 mmol/L (22-29); Chloride 104 mmol/L (96-108); Estimated Glomerular Filt Rate > 60; Glucose Random 93 mg/dL (60-115); Potassium 4.2 mmol/L (3.3-5.1); Sodium 142 mmol/L (135-145); Total Protein 7.4 g/dL (6.5-8.0)
[2023-12-19 18:45] LABS: Ethanol < 10 mg/dL
--- NOTE | 2023-12-19 19:11 | PC.NURSE ---
received report from Marce BARCENAS, assume care of pt at this time
[2023-12-19 20:17] VITALS: BP 121/58; PULSE 80; RESP 18; TEMP 36.7; O2SAT 96
[2023-12-19 22:09] VITALS: BP 147/74; PULSE 91; RESP 17; TEMP 36.6; O2SAT 95
[2023-12-19 23:13] LABS: Appearance Urine Cloudy; Color Urine Yellow; Glucose Urine UA Negative (Negative); Leukocyte Esterase Urine Trace (Negative); Nitrite Urine Negative (Negative); PH 6.5 (5.0-9.0); UMIC TRIGGER UACC YES; Urine Blood Negative (Negative); Urine Ketones Negative (Negative); Urine Protein Negative (Neg-Trace)
[2023-12-19 23:22] LABS: Amphetamine Screen Urine Not Detected (Not Detect); Barbiturates, Urine Not Detected (Not Detect); Benzodiazepines Screen Urine Not Detected (Not Detect); Buprenorphine Scr Not Detected (Not Detect); Cannabinoid Screen Urine Not Detected (Not Detect); Cocaine Screen Urine Not Detected (Not Detect); Fentanyl, urine Not Detected (Not Detect); Methadone Screen, Urine Not Detected (Not Detect); Opiate Screen Urine Not Detected (Not Detect); Oxycodone Screen Urine Not Detected (Not Detect); Phencyclidine Screen Urine Not Detected (Not Detect)
[2023-12-19 23:27] LABS: Bacteria Urine None Seen (None Seen); Hyaline Casts Urine 0-2 /LPF (0-2); RBC Urine 0-2 /HPF (0-2); WBC Urine 0-5 /HPF (0-5)
--- NOTE | 2023-12-19 23:37 | MHC.EDTECH ---
at this time tech assisted the pt into the bathroom in order to obtain a urine sample. Pt walked w/ a steady gate w/ brown non-slip socks. Pt voided and had a BM without difficulty, and walked back to her room. Pt given warm blanket and call light for safey, video monitor is also on for safety.
--- NOTE | 2023-12-20 00:55 | PC.NURSE ---
called and spoke with aide at [facility], they are aware pt is coming back
--- NOTE | 2023-12-20 00:57 | PC.NURSE ---
pt resting quietly on stretcher at this time, pt is A&OX1, resp with ease, no s/s of any acute distress, waiting on EMS for ride back to her faculity
[2023-12-20 01:36] VITALS: BP 147/74; PULSE 91; RESP 17; TEMP 36.6; O2SAT 95
== END 2023-12-20 01:37 | disposition skilled nursing facility (03) ==
PROVIDERS: Registered Nurse Emergency; Emergency Provider Emergency Medicine; PCP Internal Medicine
DX: F03.90 Unspecified dementia, unspecified severity, without behavioral disturbance, psychotic disturbance, mood disturbance, and anxiety (principal); Z79.899 Other long term (current) drug therapy; Z11.52 Encounter for screening for COVID-19
CPT/HCPCS: 36415; 51701; 71046; 80053; 80307; 81001; 85025; 87635; 99283; 99284

== ENCOUNTER 2024-01-14 19:16 | Emergency (ER) | payer MEDICARE, SELFPAY ==
[2024-01-14 19:20] VITALS: BP 134/90; PULSE 88; O2SAT 97
[2024-01-14 19:37] VITALS: BP 156/63; PULSE 97; RESP 16; TEMP 36.4; O2SAT 100; BMI 31.5
--- NOTE | 2024-01-14 19:37 | MHC.EDTECH ---
Patient inc and therefore changed
[2024-01-14 21:18] VITALS: BP 146/65; PULSE 81; RESP 18; TEMP 36.4; O2SAT 97
[2024-01-14 21:22] LABS: MANUAL DIFF FLAG NO
[2024-01-14 21:26] LABS: Basophils Absolute Auto 0.1 X10*3/uL (0.0-0.2); Eosinophils Absolute Auto 0.2 X10*3/uL (0.0-0.4); Eosinophils Percent Auto 3.3 % (0-4); Hematocrit 37.1 % (37.0-47.0); Hemoglobin 12.2 g/dl (12.0-16.0); Imm Gran Abs Auto 0.05 X10*3/uL (0.00-0.03); Imm Gran Pct Auto 0.7 % (0.0-0.4); Lymphocytes Absolute Auto 2.6 X10*3/uL (1.2-4.9); Lymphocytes Percent Auto 37.6 % (20-40); Mean Corpuscular HGB Conc 32.9 g/dl (31.0-35.0); Mean Corpuscular Hemoglobin 28.9 pg (27.0-33.0); Mean Corpuscular Volume 87.9 fL (80.0-98.0); Mean Platelet Volume 9.9 fL (9.4-12.3); Monocytes Absolute Auto 0.8 X10*3/uL (0.1-1.2); Monocytes Percent Auto 11.8 % (2-11); Neutrophils Absolute Auto 3.2 x10*3/uL (2.0-8.3); Neutrophils Percent Auto 45.6 % (45-73); Platelet Count 311 X10*3/uL (160-400); Red Blood Count 4.22 X10*6/uL (4.20-5.50); Red Cell Distribution Width 13.1 % (11.0-16.0)
[2024-01-14 21:31] LABS: Appearance Urine Clear; Color Urine Yellow; Glucose Urine UA Negative (Negative); Leukocyte Esterase Urine Negative (Negative); Nitrite Urine Negative (Negative); Urine Blood Negative (Negative); Urine Ketones Negative (Negative); Urine Protein Negative (Neg-Trace)
[2024-01-14 21:39] LABS: COVID-19 Test Negative (Negative); IDNOW Serial# 08D9AD1C
[2024-01-14 21:47] LABS: Alanine Aminotransferase 12 U/L (0-31); Albumin Level 3.9 g/dL (3.5-5.0); Alkaline Phosphatase 73 U/L (39-117); Anion Gap 11 (12-20); Aspartate Amino Transferase 20 U/L (5-31); Bilirubin Direct < 0.2 mg/dL (0.0-0.5); Bilirubin Total 0.1 mg/dL (0.0-1.0); Blood Urea Nitrogen 15 mg/dL (9-16); Calcium 9.6 mg/dL (8.4-10.2); Carbon Dioxide 30 mmol/L (22-29); Chloride 104 mmol/L (96-108); Creatinine Clr Calc Pharmacy 76.7; Estimated Glomerular Filt Rate > 60; Glucose Random 101 mg/dL (60-115); Magnesium 2.1 mg/dL (1.6-2.6); Potassium 4.1 mmol/L (3.3-5.1); Sodium 141 mmol/L (135-145); Total Protein 7.1 g/dL (6.5-8.0)
[2024-01-14 23:19] VITALS: BP 129/82; PULSE 82; RESP 15; TEMP 36.6; O2SAT 95
--- NOTE | 2024-01-15 00:07 | PC.NURSE ---
attempted to call the [facility] facility x 2 and left a message regarding patient's disposition, however no answer on the phone. drop hammer setter upSWAPNA quinteros.
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
--- NOTE | 2024-01-15 00:43 | PC.NURSE ---
call given to jj Kirby [phone] answer by Renea pt aide reporting [facility], unable to fax paperwork as only nurses at this facility are able to. states aides are present at night and nurses start shifts around 7:30-8am. provider and charge aide made aware. call to bruno RN at facility [facility] [phone] no answer.
--- NOTE | 2024-01-15 07:28 | PC.NURSE ---
attempted to call patients living facility- no answer. patient given breakfast. patient is pleasantly confused, easily redirectable. in very good mood. patient shows no signs of acute distress
== END 2024-01-15 09:34 ==
PROVIDERS: Physician Assistant; Emergency Provider Emergency Medicine
DX: F03.93 Unspecified dementia, unspecified severity, with mood disturbance (principal); R41.82 Altered mental status, unspecified; Z79.899 Other long term (current) drug therapy; Z11.52 Encounter for screening for COVID-19
CPT/HCPCS: 80048; 80076; 81003; 83735; 85025; 87635; 99283; 99284

== ENCOUNTER 2024-02-23 08:30 | Emergency (ER) | payer MEDICARE, SELFPAY ==
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
[2024-02-23 08:38] VITALS: BP 117/52; BP 160/66; PULSE 83; PULSE 90; RESP 18; TEMP 36.8; O2SAT 96; O2SAT 97; BMI 26.6
[2024-02-23 09:05] LABS: MANUAL DIFF FLAG NO
[2024-02-23 09:08] LABS: Basophils Percent Auto 0.7 % (0-2); Eosinophils Absolute Auto 0.1 X10*3/uL (0.0-0.4); Eosinophils Percent Auto 1.9 % (0-4); Hematocrit 38.4 % (37.0-47.0); Hemoglobin 12.6 g/dl (12.0-16.0); Imm Gran Abs Auto 0.02 X10*3/uL (0.00-0.03); Imm Gran Pct Auto 0.3 % (0.0-0.4); Lymphocytes Absolute Auto 1.8 X10*3/uL (1.2-4.9); Lymphocytes Percent Auto 30.1 % (20-40); Mean Corpuscular HGB Conc 32.8 g/dl (31.0-35.0); Mean Corpuscular Hemoglobin 28.4 pg (27.0-33.0); Mean Corpuscular Volume 86.7 fL (80.0-98.0); Mean Platelet Volume 10.2 fL (9.4-12.3); Monocytes Absolute Auto 0.5 X10*3/uL (0.1-1.2); Monocytes Percent Auto 9.2 % (2-11); Neutrophils Absolute Auto 3.4 x10*3/uL (2.0-8.3); Neutrophils Percent Auto 57.8 % (45-73); Platelet Count 300 X10*3/uL (160-400); Red Blood Count 4.43 X10*6/uL (4.20-5.50); Red Cell Distribution Width 13.6 % (11.0-16.0); White Blood Count 5.9 X10*3/uL (4.8-10.8)
[2024-02-23 09:22] LABS: Alanine Aminotransferase 16 U/L (0-31); Albumin Level 3.9 g/dL (3.5-5.0); Alkaline Phosphatase 75 U/L (39-117); Anion Gap 12 (12-20); Aspartate Amino Transferase 26 U/L (5-31); Bilirubin Total 0.2 mg/dL (0.0-1.0); Blood Urea Nitrogen 16 mg/dL (9-16); Calcium 9.5 mg/dL (8.4-10.2); Carbon Dioxide 25 mmol/L (22-29); Chloride 104 mmol/L (96-108); Creatinine Clr Calc Pharmacy 88.1; Estimated Glomerular Filt Rate > 60; Glucose Random 108 mg/dL (60-115); Sodium 137 mmol/L (135-145); Total Protein 6.9 g/dL (6.5-8.0)
[2024-02-23 09:31] LABS: Appearance Urine Clear; Color Urine Yellow; Glucose Urine UA Negative (Negative); Leukocyte Esterase Urine Trace (Negative); Nitrite Urine Negative (Negative); Specific Gravity - Urine 1.015 (1.005-1.025); UMIC TRIGGER UACC YES; Urine Blood Negative (Negative); Urine Ketones Negative (Negative); Urine Protein Negative (Neg-Trace)
[2024-02-23 09:44] LABS: Bacteria Urine None Seen (None Seen); Hyaline Casts Urine 0-2 /LPF (0-2); RBC Urine 0-2 /HPF (0-2); WBC Urine 0-5 /HPF (0-5)
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
[2024-02-23 10:40] VITALS: BP 134/53; PULSE 82; RESP 16; TEMP 36.8; O2SAT 98
[2024-02-23 13:17] VITALS: PULSE 85; O2SAT 97
[2024-02-23] MEDS: OLANZapine 10 MG VIAL IM (13:17)
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
--- NOTE | 2024-02-23 13:48 | PC.NURSE ---
spoke with Delia Richards pts team psychologist who stated that pt is cleared to comeback to their facility once she has been medically cleared from the IM Zyprexa she received here in the ED. per Delia LEBRON she is planning med changes for the pt
--- NOTE | 2024-02-23 14:34 | MHC.CARE ---
Pt cleared by CARE team- disposition is to return to [facility] providers at [facility]. Dr. Izquierdo consulted
[2024-02-23 15:14] VITALS: BP 134/53; PULSE 85; RESP 16; TEMP 36.8; O2SAT 97
== END 2024-02-23 16:07 | disposition home or self-care (01) ==
PROVIDERS: Emergency Provider Emergency Medicine
DX: F03.918 Unspecified dementia, unspecified severity, with other behavioral disturbance (principal); F41.9 Anxiety disorder, unspecified; F43.0 Acute stress reaction; Z79.899 Other long term (current) drug therapy
CPT/HCPCS: 36415; 80053; 81001; 85025; 96372; 99284; J2359; S9485

== ENCOUNTER 2024-03-08 13:49 | Emergency (ER) | payer MEDICARE, SELFPAY ==
[2024-03-08 14:08] VITALS: BP 102/74; PULSE 70; O2SAT 96; BMI 27.4
[2024-03-08] MEDS: LORazepam 1 MG TABLET PO (15:20)
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
[2024-03-08 22:10] VITALS: BP 0/0; PULSE 0; RESP 16; TEMP -17.7; TEMP 0
== END 2024-03-08 20:00 | disposition other institution (70) ==
PROVIDERS: Emergency Provider Emergency Medicine; PCP Internal Medicine
DX: R41.82 Altered mental status, unspecified (principal); F03.90 Unspecified dementia, unspecified severity, without behavioral disturbance, psychotic disturbance, mood disturbance, and anxiety; Z79.899 Other long term (current) drug therapy
CPT/HCPCS: 99284; 99285; S9485

== ENCOUNTER 2024-03-29 10:16 | Emergency (ER) | payer MEDICARE, SELFPAY ==
--- NOTE | ~2024-03-29 | XR_ITS ---
EXAMINATION: XR SHOULDER, LEFT CLINICAL INFORMATION: fall COMPARISON: None available. TECHNIQUE: AP external rotation, Grashey, scapular Y, and axillary views of the left shoulder. FINDINGS: There is mild acromioclavicular osteoarthritis. Glenohumeral joint is well preserved. No fracture. Alignment is anatomic. Soft tissues are normal with no abnormal calcifications. XR/XR shoulder LT min 2V IMPRESSION: Mild acromioclavicular joint arthritis. Electronically signed by: Jessica Mansfield MD 03/29/2024 11:54 AM [facility]
--- NOTE | ~2024-03-29 | CT_ITS ---
EXAM: CT HEAD WITHOUT CONTRAST CT CERVICAL SPINE INDICATION: head trauma TECHNIQUE: A noncontrast CT scan was performed from the skull base to the vertex. A noncontrast CT scan of the cervical spine was performed from the base of the skull through T1 at 2.5 mm and 0.625 mm collimation. Coronal and sagittal reformats were obtained at the acquisition workstation. This CT examination was performed using dose optimization techniques as appropriate, variously including the following: * Automated exposure control * Adjustment of mA and/or kV according to patient size (this includes techniques or standardized protocols for targeted exams where dose is matched to indication/reason for exam; i.e. extremities or head) * Use of iterative reconstruction technique Dose length product 371 mGy-cm. COMPARISON: None FINDINGS: Head: There is no evidence of acute intracranial hemorrhage or edematous large vessel territorial infarction. No abnormal mass effect or midline shift is seen. Espinoza to white matter differentiation is well preserved. No abnormal extra-axial fluid collections are identified. Commensurate prominence of the ventricles and sulci is compatible with generalized parenchymal volume loss. There is patchy periventricular and subcortical white matter hypoattenuation, most likely representing microangiopathic disease. Soft tissue swelling and scalp hematoma in the right frontal region. No acute calvarial fracture.. Right ethmoid sinus mucosal thickening. Paranasal sinuses otherwise and mastoid air cells are well-aerated. CT/CT cervical spine wo IV con IMPRESSION: Cervical Spine: The atlantooccipital and atlantoaxial articulations remain well aligned. No evidence of acute fracture or malalignment. Predens space is maintained. [place] articulation arthritis.. Multilevel mild disc degenerative changes. Multilevel facet degeneration. Bony central canal is maintained. No prevertebral soft tissue swelling.The visualized lung apices are clear. IMPRESSION: No CT evidence of acute intracranial hemorrhage or edematous territorial infarction. Cerebral volume loss with findings consistent with chronic microangiopathy. No CT evidence of acute cervical spine fracture malalignment. Mild cervical spondylosis. Electronically signed by: James Lane MD 03/29/2024 11:41 AM LISET
[2024-03-29 10:28] VITALS: BP 116/68; PULSE 60; O2SAT 97
[2024-03-29 10:42] VITALS: BMI 24.2
[2024-03-29 10:52] VITALS: BP 148/69; PULSE 80; RESP 16; TEMP 36.6; O2SAT 96
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
[2024-03-29 14:32] VITALS: BP 148/69; PULSE 80; RESP 16; TEMP 36.6; O2SAT 96
== END 2024-03-29 14:33 | disposition home or self-care (01) ==
PROVIDERS: Emergency Provider Emergency Medicine; PCP Internal Medicine
DX: S09.90XA Unspecified injury of head, initial encounter (principal); F03.90 Unspecified dementia, unspecified severity, without behavioral disturbance, psychotic disturbance, mood disturbance, and anxiety; R45.1 Restlessness and agitation; R51.9 Headache, unspecified; M25.512 Pain in left shoulder; M54.2 Cervicalgia; W18.30XA Fall on same level, unspecified, initial encounter; Y93.89 Activity, other specified; Y92.89 Other specified places as the place of occurrence of the external cause; Y99.8 Other external cause status
CPT/HCPCS: 70450; 72125; 73030; 99284

== ENCOUNTER 2024-04-02 15:58 | Emergency (ER) | payer MEDICARE, SELFPAY ==
--- NOTE | ~2024-04-02 | XR_ITS ---
EXAMINATION: XR CHEST CLINICAL INFORMATION: Mental status change COMPARISON: Chest radiograph dated December 19, 2023. TECHNIQUE: Frontal view of the chest was obtained. FINDINGS: The heart is normal in size. There is calcific atherosclerotic disease of the aorta. Linear opacities at the left lung base appear similar to the prior study representing either subsegmental atelectasis or scarring. There is no consolidation. No pleural effusion or pneumothorax. No acute osseous abnormality. XR/XR chest 1V IMPRESSION: No acute cardiopulmonary disease. Electronically signed by: Demetrio Concepcion DO 04/02/2024 06:52 PM EST
[2024-04-02 16:10] VITALS: BP 160/70; PULSE 88; RESP 16; TEMP 36.5; O2SAT 96; BMI 30.7
--- NOTE | 2024-04-02 16:53 | ED.GENADULT ---
HPI - General Adult General Chief complaint: Behavioral Concerns Stated complaint: combative at the [facility] Time Seen by Provider: 04/02/24 16:37 Source: patient and EMS Mode of arrival: EMS Limitations: no limitations History of Present Illness ED Provider: DR. Rudolph HPI narrative: 73-year-old female PMH significant for dementia and patient lives in a locked unit, patient got aggravated and aggressive with staff sent her here for more evaluation, was seen and evaluated for similar symptoms in our ER since 2022 patient had 9 ED visits for similar symptoms. Patient in the emergency department is calm, pleasant, follow commands, no aggression. No CP, no SOB, no abdominal pain, no UTI symptoms. Related Data Home Medications ?Medication ?Instructions ?Recorded ?Confirmed latanoprost 0.005 % eye drops 1 drp ophthalmic (eye) BEDTIME 03/04/23 05/14/23 duloxetine 20 mg capsule,delayed 20 mg PO BID 05/14/23 05/14/23 release gabapentin 100 mg capsule 100 mg PO TID 05/14/23 05/14/23 melatonin 2.5 mg chewable tablet 2.5 mg PO BEDTIME 05/14/23 05/14/23 quetiapine 25 mg tablet 50 mg PO TID 05/14/23 05/14/23 sodium chloride 0.65 % nasal spray 1 spray intranasal BID PRN 05/14/23 05/14/23 aerosol (Saline Nasal) Congestion Previous Rx's ?Medication ?Instructions ?Recorded duloxetine 20 mg capsule,delayed 20 mg PO BID #60 caps 05/14/23 release gabapentin 100 mg capsule 100 mg PO TID #90 caps 05/14/23 latanoprost 0.005 % eye drops 1 drp ophthalmic (eye) BEDTIME 05/14/23 #2.5 mL melatonin 3 mg tablet 2.5 mg (0.8333 x 3 mg) PO BEDTIME 05/14/23 #30 tabs quetiapine 50 mg tablet 50 mg PO TID #90 tabs 05/14/23 sodium chloride 0.65 % nasal spray 1 spray intranasal BID PRN 05/14/23 aerosol (Deep Sea Nasal) Congestion #44 mL Allergies Allergy/AdvReac Type Severity Reaction Status Date / Time No Known Allergies Allergy Verified 04/02/24 16:13 Review of Systems Review of Systems: Yes Unobtainable due to mental condition [facility] Past Medical History Medical History Dementia Social History Social History Unable to assess alcohol history related to: Unable to respond Alcohol intake: current Alcohol intake frequency: holidays/special occasions only Alcohol type: wine Patient Tobacco Use Status: Tobacco use Unknown Advance Directives: Yes Advance Directives on File: Yes Advance Directives Date on File: 06/24/23 Physical Exam ED Vital Signs: Vital Signs - 24 hr 04/02/24 16:10 04/02/24 19:07 Temperature 97.7 F 97.5 F Pulse Rate 88 89 Respiratory Rate 16 16 Blood Pressure 160/70 H 158/65 H Pulse Oximetry 96 95 Oxygen Delivery Method Room Air Room Air BMI result Body Mass Index 30.7 Vital signs have been reviewed and appear to be correct. Blood pressure elevated. Heart rate normal. Respiratory rate normal. Temperature normal. Oxygen saturation normal. Appearance: Alert. No acute distress. Head: Normal external exam. Normocephalic. Atraumatic. No Holder signs noted. No raccoon eyes noted Eyes: PERRLA. EOMI. Conjunctiva and sclera normal. Eyelids normal. ENT: TM's Normal. Pharynx normal. Uvula midline. Moist mucous membranes. No trismus noted. No drooling noted. No muffled voice noted. Neck: Normal inspection. Neck supple. FROM. No adenopathy. Thyroid Normal. No meningeal signs. No neck mass noted. CVS: Normal heart rate and rhythm. Heart sound normal. No murmurs noted. Pulses normal throughout. Respiratory: No respiratory distress. Painless inspiration. Breath sounds normal. No wheezes/rales/rhonchi noted. Chest nontender. No accessory muscle usage noted or decreased air movement noted. Abdomen: Soft and nontender. Bowel sounds normal in all 4 quadrants. No distention noted. No organomegaly noted. No visible injury noted. Back: No CVA tenderness. Full range of motion noted. Skin: Skin warm and dry. Normal skin color. Normal skin turgor. No rashes/lesions/lacerations noted. Extremities: No lower extremity edema. Extremities exhibit normal range of motion. Extremities nontender. Neuro: Oriented X1 to place. Cranial nerve exam: II-XII are grossly intact No motor deficit. No sensory deficit. Reflexes normal. Patient Orientation: Place, okay hygiene and grooming. Fair eye contact, attentive, no tics or tremors. Level of Consciousness: Awake, Appropriate and Alert Patient Behavior: Appropriate, Guarded, Cooperative and Anxious Mood Description: Constricted, Blunted and Apprehensive Affect Description: Constricted, Blunted and Apprehensive Patient Cognition Impaired: No Ability to Follow Directions: Excellent Speech Pattern: Clear, Appropriate and Spontaneous Speech, nonpressured, spontaneous with regular rate and rhythm, normal volume and prosody. No dysarthria. Memory Description: Intact, Immediate Intact and Short Term Intact Hallucinations: None Delusions: Not Present Thought Process: Intact Thought Content: positive for Intact, positive for Logical, denies Suicidal Ideation and denies Homicidal Ideation. Depressive Symptoms: Not present. Judgement and Insight: Limited but adequate. Course Reevaluation(s) Reevaluation #1: A 73 year female history advanced dementia patient in a locked unit at a [facility] was sent for further evaluation of period of aggression and behavior disturbance to the staff, patient in the emergency department is acting her normal baseline, unremarkable labs, care team input is appreciated, patient at a locked unit for dementia with one-to-one observation 12 hours a day. Has been calm and cooperative in the emergency department will sent back to [facility] living. Time: 19:42 Medical Decision Making Differential Diagnosis Differential Diagnoses: The differential diagnosis associated with the presentation includes (Dementia, electrolyte disturbance, UTI, severe anemia, alcohol intoxication depression, hallucination.) Admission/Observation Consideration of admission/observation: Escalation of care including admission/observation considered Lab Data MDM Lab Attestation statement: I reviewed the patient's lab results. 04/02/24 17:09 04/02/24 17:09 Labs: Lab Results 04/02/24 04/02/24 Range/Units 16:58 17:09 WBC 7.8 (4.8-10.8) X10*3/uL RBC 4.29 (4.20-5.50) X10*6/uL Hgb 12.2 (12.0-16.0) g/dl Hct 37.3 (37.0-47.0) % MCV 86.9 (80.0-98.0) fL MCH 28.4 (27.0-33.0) pg MCHC 32.7 (31.0-35.0) g/dl RDW 14.2 (11.0-16.0) % Plt Count 368 (160-400) X10*3/uL MPV 9.4 (9.4-12.3) fL Immature Gran % (Auto) 1.2 H (0.0-0.4) % Neut % (Auto) 55.6 (45-73) % Lymph % (Auto) 26.9 (20-40) % Grant % (Auto) 12.2 H (2-11) % Eos % (Auto) 3.2 (0-4) % Baso % (Auto) 0.9 (0-2) % Lymph # (Auto) 2.1 (1.2-4.9) X10*3/uL Grant # (Auto) 1.0 (0.1-1.2) X10*3/uL Eos # (Auto) 0.3 (0.0-0.4) X10*3/uL Baso # (Auto) 0.1 (0.0-0.2) X10*3/uL Abs Immat Gran (auto) 0.09 H (0.00-0.03) X10*3/uL Absolute Neuts (auto) 4.3 (2.0-8.3) x10*3/uL Absolute Nucleated RBC 0.000 (0.0-0.012) X10*3/uL Nucleated RBC % (auto) 0.0 (0.0-0.2) /100WBC Sodium 139 (135-145) mmol/L Potassium 3.9 (3.3-5.1) mmol/L Chloride 107 (96-108) mmol/L Carbon Dioxide 25 (22-29) mmol/L Anion Gap 11 L (12-20) BUN 11 (9-16) mg/dL Creatinine 0.65 (0.5-1.4) mg/dL Estim Creat Clear Calc 88.4 Estimated GFR > 60 Random Glucose 108 (60-115) mg/dL Calcium 9.4 (8.4-10.2) mg/dL Total Bilirubin 0.2 (0.0-1.0) mg/dL Direct Bilirubin < 0.2 (0.0-0.5) mg/dL AST 27 (5-31) U/L ALT 19 (0-31) U/L Alkaline Phosphatase 94 (39-117) U/L Troponin I High Sens 4.6 (<3.5-17.0) ng/L B-Natriuretic Peptide 14 (<100) pg/mL Total Protein 7.3 (6.5-8.0) g/dL Albumin 3.9 (3.5-5.0) g/dL Lipase 17 (8-78) U/L Ethyl Alcohol < 10 mg/dL Influenza Type A (PCR) NEGATIVE (Negative) Influenza Type B (PCR) NEGATIVE (Negative) RSV RNA Qual (PCR) NEGATIVE (Negative) SARS-CoV-2 RNA (RT-PCR) NEGATIVE (Negative) Chronic Conditions Patient?s care impacted by: Other (Dementia) Discharge Plan Discharge Clinical Impression: Dementia Patient Disposition: Still a Patient Instructions: Dementia (ED) Prescriptions: No Action quetiapine 25 mg tablet 50 mg PO TID gabapentin 100 mg capsule 100 mg PO TID Saline Nasal 0.65 % Aerosol,[place] 1 spray INTRANASAL BID PRN (Reason: Congestion) duloxetine 20 mg capsule,delayed release(DR/EC) 20 mg PO BID melatonin 2.5 mg Tablet,Chewable 2.5 mg PO BEDTIME latanoprost 0.005 % Drops 1 drp ophthalmic (eye) BEDTIME Qty: 2.5 0RF melatonin 3 mg Tablet 2.5 mg PO BEDTIME Qty: 30 0RF gabapentin 100 mg Capsule 100 mg PO TID Qty: 90 0RF Deep [place] Nasal 0.65 % Aerosol,[place] 1 spray intranasal BID PRN (Reason: Congestion) Qty: 44 0RF duloxetine 20 mg Capsule,Delayed Release(Dr/Ec) 20 mg PO BID Qty: 60 0RF quetiapine 50 mg Tablet 50 mg PO TID Qty: 90 0RF latanoprost 0.005 % drops 1 drp ophthalmic (eye) BEDTIME Print Language: Nigerian
[2024-04-02 17:18] LABS: MANUAL DIFF FLAG NO
[2024-04-02 17:19] LABS: Basophils Absolute Auto 0.1 X10*3/uL (0.0-0.2); Basophils Percent Auto 0.9 % (0-2); Lymphocytes Percent Auto 26.9 % (20-40); PLT CLUMP 1; Red Cell Distribution Width 14.2 % (11.0-16.0); SCAN SMEAR FLAG 1
[2024-04-02 17:21] LABS: Eosinophils Absolute Auto 0.3 X10*3/uL (0.0-0.4); Eosinophils Percent Auto 3.2 % (0-4); Hematocrit 37.3 % (37.0-47.0); Hemoglobin 12.2 g/dl (12.0-16.0); Imm Gran Abs Auto 0.09 X10*3/uL (0.00-0.03); Imm Gran Pct Auto 1.2 % (0.0-0.4); Lymphocytes Absolute Auto 2.1 X10*3/uL (1.2-4.9); Mean Corpuscular HGB Conc 32.7 g/dl (31.0-35.0); Mean Corpuscular Hemoglobin 28.4 pg (27.0-33.0); Mean Corpuscular Volume 86.9 fL (80.0-98.0); Mean Platelet Volume 9.4 fL (9.4-12.3); Monocytes Percent Auto 12.2 % (2-11); Neutrophils Absolute Auto 4.3 x10*3/uL (2.0-8.3); Neutrophils Percent Auto 55.6 % (45-73); Red Blood Count 4.29 X10*6/uL (4.20-5.50)
[2024-04-02 17:23] LABS: White Blood Count 7.8 X10*3/uL (4.8-10.8)
[2024-04-02 17:24] LABS: Platelet Count 368 X10*3/uL (160-400)
[2024-04-02 17:40] LABS: Alanine Aminotransferase 19 U/L (0-31); Albumin Level 3.9 g/dL (3.5-5.0); Alkaline Phosphatase 94 U/L (39-117); Anion Gap 11 (12-20); Aspartate Amino Transferase 27 U/L (5-31); Bilirubin Direct < 0.2 mg/dL (0.0-0.5); Bilirubin Total 0.2 mg/dL (0.0-1.0); Blood Urea Nitrogen 11 mg/dL (9-16); Calcium 9.4 mg/dL (8.4-10.2); Carbon Dioxide 25 mmol/L (22-29); Chloride 107 mmol/L (96-108); Creatinine Clr Calc Pharmacy 88.4; Estimated Glomerular Filt Rate > 60; Ethanol < 10 mg/dL; Glucose Random 108 mg/dL (60-115); Lipase 17 U/L (8-78); Potassium 3.9 mmol/L (3.3-5.1); Sodium 139 mmol/L (135-145); Total Protein 7.3 g/dL (6.5-8.0)
[2024-04-02 17:44] LABS: B Type Natriuretic Peptide 14 pg/mL (<100)
[2024-04-02 17:45] LABS: Troponin-I High Sensitivity 4.6 ng/L (<3.5-17.0)
[2024-04-02 18:01] LABS: Influenza A PCR NEGATIVE (Negative); Influenza B PCR NEGATIVE (Negative); Resp Syncy Virus RNA Qual PCR NEGATIVE (Negative); SARS COV2 PCR INHOUSE NEGATIVE (Negative)
[2024-04-02 19:07] VITALS: BP 158/65; PULSE 89; RESP 16; TEMP 36.4; O2SAT 95
--- NOTE | 2024-04-02 19:21 | PC.NURSE ---
pt in bed, restless, fidgeting with items at bedside, attempt to redirect pt, changed channel on tv until something interested her. pt in view of nursing station for monitoring.
--- NOTE | 2024-04-02 20:02 | PC.NURSE ---
report given to [facility] staff
[2024-04-02 21:13] VITALS: BP 158/65; PULSE 89; RESP 16; TEMP 36.4; O2SAT 95
== END 2024-04-02 21:14 | disposition still patient (30) ==
PROVIDERS: Emergency Provider Emergency Medicine
DX: F03.911 Unspecified dementia, unspecified severity, with agitation (principal); R41.82 Altered mental status, unspecified; Z03.818 Encounter for observation for suspected exposure to other biological agents ruled out; Z79.899 Other long term (current) drug therapy; Z51.81 Encounter for therapeutic drug level monitoring
CPT/HCPCS: 0241U; 71045; 80048; 80076; 80307; 83690; 83880; 84484; 85025; 99283